=== PATIENT | female | born 1985 | race Caucasian/White ===

== ENCOUNTER 2020-04-19 16:01 | Observation (INO) | payer OTHER ==
[~2020-04-19] VITALS: Ht 157.5 cm; Wt 137.8 kg
--- NOTE | ~2020-04-19 | OP ---
[facility] [address] [place] [address] OPERATIVE REPORT Name: FRANKLYN MEZA Room: [address] [place]#: [id number] Admission: 04/19/20 Attend Phys: Rashel Jose Discharge: Date of : 85 Report #: [id number] THIS REPORT FOR: //name// cc: RICHARD Son family physician/PCP RICHARD - Adelaida family physician/PCP ~ THIS REPORT FOR: //name// CC: RICHARD physician/PCP Rashel Jose DATE OF SERVICE: 04/20/2020 PREOPERATIVE DIAGNOSIS: Right axillary animal bite with abscess. POSTOPERATIVE DIAGNOSIS: Right axillary animal bite with abscess. OPERATION: Excisional debridement of right axilla, 4 x 5 cm. SURGEON: Rashel Jose MD ANESTHESIA: General. ESTIMATED BLOOD LOSS: Minimal. SPECIMENS: 1. Deep tissue for culture and sensitivity. 2. Tissue for pathology. DESCRIPTION OF PROCEDURE: After informed consent was obtained, the patient was brought to the operating room and placed supine. SCDs were placed and working, preoperative antibiotics were administered, general anesthesia was induced. The right axilla was prepped and draped in the usual sterile fashion. This was an excisional debridement. Depth was down to the subcutaneous fat. 100% of the wound was debrided. Post-debridement wound area was fair. I used the cautery to excise a 4 x 5 cm area of skin down through the subcutaneous fat. The area was then copiously irrigated and packed with sterile gauze. Sterile dressings were applied. COMPLICATIONS: None. DISPOSITION: The patient was taken to recovery in satisfactory condition. By: [id number] Jose MD /nt
[~2020-04-19 16:01] MED LIST: AMOXICILLIN 50500 M1 PO; BACTRIM DS TAB1 EACH PO; FLEXERIL PO; HYDROCODONE-AP1 EAC6 PO; IBUPROFEN 800800 M1 PO; KEFLEX500 MG PO; NAPROSYN500 MG PO; NOHOMEMEDICATIONS; PERCOCET 5-3251 EACH PO; PREDNISONE 20 M20 M1 PO; ROBAXIN 750 MG750 M1 PO; TRAMADOL 50 MG50 MG PO; ULTRAM 50MG TAB50 MG PO; ULTRAM50 MG PO; VENTOLIN HFA 1818 GM INH; ZPAK PO; ZYRTEC10 M2 PO
[2020-04-19 16:14] VITALS: BP 123/82
[2020-04-19 16:51] LABS: ABSOLUTE EOSINOPHILS 0.3 thou/uL (0.0-0.7); ABSOLUTE LYMPHOCYTES 4.8 thou/uL (0.8-5.3); ABSOLUTE MONOCYTES 0.8 thou/uL (0.0-1.2); BASOPHILS 0.2 %; HEMOGLOBIN 15.7 gm/dL (12.0-15.0); MCH 29.5 pg (26.0-34.0); MCV 86.6 fL (80.0-100.0); MONOCYTES 5.1 %; MPV 8.9 fl. (7.2-11.1); NUCLEATED RBCS 0 /100WBC; PLATELET COUNT* 247 thou/uL (150-400); POLYS 62.7 %; RBC 5.32 mil/uL (4.20-5.00); RDW-CV 14.2 % (10.5-14.5); WBC 15.9 thou/uL (4.0-11.0)
[2020-04-19 16:58] LABS: URINE BILIRUBIN NEGATIVE (Negative); URINE BLOOD NEGATIVE (Negative); URINE CLARITY CLEAR; URINE COLOR YELLOW; URINE GLUCOSE-RANDOM NEGATIVE (Negative); URINE KETONES NEGATIVE (Negative); URINE LEUKOCYTES-REFLEX 1+ (Negative); URINE NITRITE-REFLEX NEGATIVE (Negative); URINE PROTEIN NEGATIVE (Negative); URINE SPECIFIC GRAVITY >= 1.030 (1.005-1.030); URINE UROBILINOGEN 0.2 E.U./dl (0.2-1.0)
[2020-04-19 17:00] LABS: CALCIUM 8.5 mg/dL (8.5-10.1); CREATININE 0.9 mg/dL (0.6-1.3); POTASSIUM 3.7 mmol/L (3.5-5.1)
[2020-04-19 17:05] LABS: ALBUMIN 3.2 g/dL (3.4-5.0); TOTAL BILIRUBIN 0.4 mg/dL (<0.1-1.0); TOTAL PROTEIN 7.3 g/dL (6.4-8.2)
[2020-04-19 17:12] LABS: BACTERIA-REFLEX >30 Many /HPF (None Seen); CASTS None Seen /LPF (None Seen); MUCUS >6 Heavy strn/LPF (None Seen); SQUAMOUS >10 Many /LPF (0-3); URINE RBC 0-2 Rare /HPF (0-2); URINE WBC-REFLEX 0-5 Rare /HPF (0-5)
[2020-04-19 17:13] LABS: CRYSTALS None Seen /LPF (None Seen)
[2020-04-19 17:27] VITALS: BP 132/75
[2020-04-19 19:45] VITALS: BP 113/79
[2020-04-20 07:45] VITALS: BP 124/71
[2020-04-20 14:02] VITALS: BP 124/71
[2020-04-20] MEDS ORDERED: PERCOCET 5-3251 EACH PO (14:08)
--- NOTE | 2020-04-24 17:07 | PATH ---
[address] [address] PATHOLOGY RPT PROCEDURE Name: DERRICKJEANNIE R Room: [address] [place] Mae#: [id number] Admission: 04/19/20 Date of : 85 Discharge: 04/20/20 Report #: [id number] Path Case #: [id number] [facility] Accession Number: [id number] . 01 Material submitted: . axillary tail of breast - RIGHT AXILLARY MASS. Modifiers: right . 01 Clinical history: . Spider bite; abscess . 02 Diagnosis: Skin with underlying fibroadipose tissue "right axillary mass": - Epidermal necrosis with superficial and deep perivascular dermatitis with fat necrosis and with abundant eosinophils. See comment. (SHA:pit 04/23/2020) QTP 04/23/2020 1540 Local . 02 Comment: This case is also reviewed by the dermatopathologist Dr. Jeannie Parkinson. . These findings are consistent with an arthropod bite site. History of spider bite noted. (SHA:pit 04/23/2020) . 02 Electronically signed: . Edwar Gonzalez MD, Pathologist NPI- [id number] . 01 Gross description: . The specimen is received in formalin, labeled "Jeannie Kim, right axillary mass". Received is an ellipse of skin with attached underlying fibroadipose tissue measuring 5.2 x 2.0 x 2.6 cm in greatest dimensions. The epidermal surface displays a poorly circumscribed, flat, flaky and pink-johnson to pink-arias lesion measuring 2.8 x 1.5 cm. Sectioning reveals bright yellow to pink-johnson cut surfaces with a slight amount of necrosis identified. The specimen is submitted representatively in cassette A1. ([facility]; 04/20/2020) . After initial microscopic examination, additional metals sales representative sections are submitted in cassettes A2 through A5. ([facility]; 04/23/2020) QA/[facility] 04/23/2020 1655 Local . 02 Pathologist provided ICD-10: I96, L30.9 . 02 CPT . [id number] [place] [address] PATHOLOGY RPT PROCEDURE Name: JEANNIE KIM Room: [address] [place]#: [id number] Admission: 04/19/20 Date of : 85 Discharge: 04/20/20 Report #: [id number] Path Case #: [id number] Specimen Comment: A courtesy copy of this report has been sent to [phone] Specimen Comment: Report sent to Performed at: [address], [place], [place] [id number] MD Rodney Alba MD Phone: [phone] Performed at: 02 [facility] [address], [place], [place] [id number] MD Aj Nugent MD Phone: [phone]
== END 2020-04-20 15:10 | disposition home or self-care (01) ==
LOC: M.ERS 16:01 → M.TBA-ER 16:51 → M.3W 17:40
PROVIDERS: Physician Assistant; ADMIT Surgery; ATTEND Surgery
DX: Z03.818 Encounter for observation for suspected exposure to other biological agents ruled out (principal); L02.411 Cutaneous abscess of right axilla; T63.301A Toxic effect of unspecified spider venom, accidental (unintentional), initial encounter; Y92.89 Other specified places as the place of occurrence of the external cause; F17.210 Nicotine dependence, cigarettes, uncomplicated

== ENCOUNTER 2021-05-14 06:51 | Emergency (ER) | payer OTHER ==
[~2021-05-14] VITALS: Ht 157.5 cm; Wt 131.5 kg
[2021-05-14] MEDS ORDERED: TESSALON PERLE100 M1 PO (08:25)
[2021-05-14 08:34] VITALS: BP 136/85
== END 2021-05-14 08:36 | disposition home or self-care (01) ==
LOC: M.ERS 06:51
DX: J06.9 Acute upper respiratory infection, unspecified (principal); F17.210 Nicotine dependence, cigarettes, uncomplicated; Z90.49 Acquired absence of other specified parts of digestive tract; Z88.5 Allergy status to narcotic agent